=== PATIENT | male | born 1935 | race Caucasian/White ===

== ENCOUNTER 2017-11-21 11:26 | Inpatient (IN) | payer OTHER, BC ==
[~2017-11-21] VITALS: Ht 182.9 cm; Wt 88.9 kg
[~2017-11-21 11:26] MED LIST: AMLODIPINE BESYL5 MG PO; ASPIRIN EC81 M1 PO; ATIVAN0.5 MG PO; ATORVASTATIN CA10 MG; ATORVASTATIN CA40 MG PO; ATORVASTATIN CA80 MG PO; BACTRIM DS TAB1 EACH; CARVEDILOL25 MG PO; CARVEDILOL3.125 MG; CASODEX 50 MG T50 M1 PO; CELEXA 10 MG TA10 M1; CELEXA 20 MG TA20 MG PO; CIPRO500 MG; COREG6.25 MG PO; COUMADIN 1MG TAB1 M1; FLORINEF ACETA0.1 MG PO; HYDROCODON-ACE1 EAC5 PO; HYDROCODON-ACE1 EAC7; KEFLEX500 MG PO; MELOXICAM7.5 MG PO; NITROSTAT0.4 MG SUBLING; NORCO 10-325 T1 EACH PO; PROSCAR 5MG TABL5 MG PO; SEROQUEL 25 MG25 M2 PO; TESSALON PERLE100 MG PO
[2017-11-21 11:29] VITALS: BP 132/85
[2017-11-21 12:03] LABS: HEMATOCRIT 41.4 % (42.0-52.0); HEMOGLOBIN 14.2 gm/dL (14.0-18.0); MCH 29.6 pg (26.0-34.0); MCHC 34.3 g/dL (28.0-37.0); MCV 86.4 fL (80.0-100.0); RBC 4.79 mil/uL (4.50-6.00); RDW 14.9 % (10.5-14.5); WBC 19.3 thou/uL (4.0-11.0)
[2017-11-21 12:37] LABS: ABSOLUTE NEUTROPHILS 17.4 thou/uL (1.4-8.2); ANISOCYTOSIS 1+
[2017-11-21 12:38] LABS: PLATELET COUNT 181 thou/uL (150-400)
[2017-11-21 12:46] LABS: ALBUMIN 2.6 g/dL (3.4-5.0); CALCIUM 8.5 mg/dL (8.5-10.1); CREATININE 1.1 mg/dL (0.7-1.3); TOTAL BILIRUBIN 0.6 mg/dL (<0.1-1.0)
[2017-11-21 12:48] LABS: POTASSIUM 2.9 mmol/L (3.5-5.1)
[2017-11-21 13:17] LABS: URINE BILIRUBIN NEGATIVE (Negative); URINE BLOOD 2+ (Negative); URINE CLARITY CLEAR; URINE COLOR YELLOW; URINE GLUCOSE-RANDOM* NEGATIVE (Negative); URINE KETONES TRACE (Negative); URINE LEUKOCYTES NEGATIVE (Negative); URINE NITRITE NEGATIVE (Negative); URINE PROTEIN (DIPSTICK) 2+ (Negative); URINE UROBILINOGEN 0.2 E.U./dl (0.2-1.0)
[2017-11-21 13:30] VITALS: BP 152/78
[2017-11-21 13:56] LABS: CASTS None Seen /LPF (None Seen); CRYSTALS None Seen /LPF (None Seen); SQUAMOUS None Seen /LPF (0-3); URINE RBC 0-2 Rare /HPF (0-2); URINE WBC 6-15 Few /HPF (0-5)
[2017-11-21 13:57] LABS: BACTERIA 1-9 Few /HPF (None Seen)
[2017-11-21 14:19] VITALS: BP 145/86
[2017-11-21 14:45] VITALS: BP 159/89
[2017-11-21 19:21] VITALS: BP 159/85
[2017-11-22 00:32] VITALS: BP 137/74
[2017-11-22 04:18] VITALS: BP 155/85
[2017-11-22 06:20] LABS: HEMATOCRIT 36.9 % (42.0-52.0); MCH 28.9 pg (26.0-34.0); MCHC 33.1 g/dL (28.0-37.0); MCV 87.4 fL (80.0-100.0); RBC 4.22 mil/uL (4.50-6.00); RDW 15.1 % (10.5-14.5); WBC 13.3 thou/uL (4.0-11.0)
[2017-11-22 06:25] LABS: HEMOGLOBIN 12.2 gm/dL (14.0-18.0)
[2017-11-22 06:33] LABS: CREATININE 0.9 mg/dL (0.7-1.3); MAGNESIUM 2.3 mg/dL (1.8-2.4); POTASSIUM 3.3 mmol/L (3.5-5.1)
[2017-11-22 07:30] VITALS: BP 147/71
[2017-11-22 16:12] VITALS: BP 156/80
[2017-11-22 20:00] VITALS: BP 146/77
[2017-11-23 04:30] VITALS: BP 155/74
[2017-11-23 07:10] VITALS: BP 148/82
[2017-11-23 09:18] LABS: HEMATOCRIT 36.5 % (42.0-52.0); MCH 28.9 pg (26.0-34.0); MCV 87.5 fL (80.0-100.0); RBC 4.17 mil/uL (4.50-6.00); RDW 15.2 % (10.5-14.5); WBC 9.6 thou/uL (4.0-11.0)
[2017-11-23 09:28] LABS: CALCIUM 7.8 mg/dL (8.5-10.1); CREATININE 0.8 mg/dL (0.7-1.3); MAGNESIUM 2.2 mg/dL (1.8-2.4); POTASSIUM 3.6 mmol/L (3.5-5.1)
[2017-11-23 16:20] VITALS: BP 138/65
[2017-11-23 19:27] VITALS: BP 102/74
[2017-11-23 23:36] VITALS: BP 138/61
[2017-11-24 04:12] VITALS: BP 143/76
[2017-11-24 09:16] VITALS: BP 148/75
[2017-11-24 09:41] VITALS: BP 148/75
[2017-11-24] MEDS ORDERED: CIPROFLOXACIN500 MG PO (11:58)
== END 2017-11-24 15:20 | DRG 871 ==
LOC: ER 11:26 → 4S 13:17
PROVIDERS: Internal Medicine; Physician Assistant
DX: A41.9 Sepsis, unspecified organism (principal); E43 Unspecified severe protein-calorie malnutrition; J20.9 Acute bronchitis, unspecified; I10 Essential (primary) hypertension; E78.00 Pure hypercholesterolemia, unspecified; F03.90 Unspecified dementia, unspecified severity, without behavioral disturbance, psychotic disturbance, mood disturbance, and anxiety; E87.6 Hypokalemia; E78.5 Hyperlipidemia, unspecified; Z79.899 Other long term (current) drug therapy; Z95.0 Presence of cardiac pacemaker
CPT/HCPCS: 10100